=== PATIENT | male | born 1985 | race Caucasian/White ===

== ENCOUNTER → 2017-10-31 | Outpatient (CLI) | payer OTHER ==
[2017-10-31 09:46] LABS: AUTOMATED NEUTROPHIL # 3.9 TH/MM3 (1.8-7.7); BASOPHIL % 0.3 % (0.0-2.0); EOSINOPHIL # 0.1 TH/MM3 (0-0.4); EOSINOPHIL % 1.2 % (0.0-4.0); HEMATOCRIT 38.7 % (39.0-51.0); HEMOGLOBIN 13.6 GM/DL (13.0-17.0); LYMPH % 23.3 % (9.0-44.0); LYMPHOCYTE # 1.3 TH/MM3 (1.0-4.8); MEAN CELL VOLUME 84.2 FL (80.0-100.0); MEAN CORPUSCULAR HEMOGLOBIN 29.5 PG (27.0-34.0); MONO % 7.8 % (0.0-8.0); MONOCYTE # 0.5 TH/MM3 (0-0.9); NEUT % 67.4 % (16.0-70.0); PLATELET COUNT 181 TH/MM3 (150-450); RED CELL DISTRIBUTION WIDTH 11.9 % (11.6-17.2); WHITE BLOOD COUNT 5.8 TH/MM3 (4.0-11.0)
[2017-10-31 10:29] LABS: ALBUMIN 4.1 GM/DL (3.4-5.0); AST (GOT) 28 U/L (15-37); BICARBONATE 29.3 MEQ/L (21.0-32.0); BLOOD UREA NITROGEN 11 MG/DL (7-18); CALCIUM 9.1 MG/DL (8.5-10.1); CHLORIDE 106 MEQ/L (98-107); CREATININE 1.06 MG/DL (0.60-1.30); DIRECT BILIRUBIN ADULT 0.1 MG/DL (0.0-0.2); GLOMERULAR FILTRATION RATE 83 ML/MIN (>89); GLUCOSE,FASTING 91 MG/DL (74-99); MAGNESIUM 2.2 MG/DL (1.5-2.5); PHOSPHORUS 4.1 MG/DL (2.5-4.9); SODIUM (NA) 141 MEQ/L (136-145)
[2017-10-31 10:55] LABS: ALKALINE PHOSPHATASE 106 U/L (45-117); ALT (GPT) 23 U/L (12-78); THYROXINE (T4) 9.3 MCG/DL (4.5-12.1); TOTAL BILIRUBIN ADULT 0.3 MG/DL (0.2-1.0); TOTAL PROTEIN 7.7 GM/DL (6.4-8.2)
[2017-10-31 11:06] LABS: FOLATE GREATER THAN 20.0 NG/ML (3.1-17.5)
[2017-11-04 10:50] LABS: BIOAVAILABLE TESTOSTERONE 34 ng/dL (83-257); FREE TESTOSTERONE 4.37 ng/dL (5.05-19.8); METHYLMALONIC ACID 0.13 nmol/mL (<=0.40); TOTAL TESTOSTERONE 168 ng/dL (240-950)
== END ==
LOC: OLAB 08:32
PROVIDERS: ATTEND Psychiatry & Neurology Neurology
DX: R79.9 Abnormal finding of blood chemistry, unspecified (principal); E83.51 Hypocalcemia; E83.39 Other disorders of phosphorus metabolism; R74.8 Abnormal levels of other serum enzymes; E07.9 Disorder of thyroid, unspecified; R70.0 Elevated erythrocyte sedimentation rate; E78.5 Hyperlipidemia, unspecified; R68.89 Other general symptoms and signs; E56.9 Vitamin deficiency, unspecified; E72.11 Homocystinuria; E71.120 Methylmalonic acidemia; E89.5 Postprocedural testicular hypofunction; Z79.899 Other long term (current) drug therapy
CPT/HCPCS: 36415; 80053; 82248; 82306; 82607; 82746; 83090; 83735; 83921; 84100; 84207; 84403; 84410; 84425; 84436; 84443; 84446; 84481; 85025; 85652; 86140; 86703; 86704; 86803

== ENCOUNTER → 2017-11-29 | Outpatient (CLI) | payer OTHER ==
[2017-12-03 12:08] LABS: BIOAVAILABLE TESTOSTERONE 34 ng/dL (72-235); ESTRADIOL <10 pg/mL (10-40); FREE TESTOSTERONE 4.24 ng/dL (4.85-19.0); PROLACTIN 14.4 ng/mL (4.0 - 15.2); TOTAL TESTOSTERONE 202 ng/dL (240-950)
== END ==
LOC: OLAB 10:32
PROVIDERS: ATTEND Urology
DX: E29.1 Testicular hypofunction (principal)
CPT/HCPCS: 36415; 82670; 83001; 83002; 84146; 84403; 84410